=== PATIENT | female | born 1985 | race Caucasian/White ===

== ENCOUNTER → 2023-09-18 13:45 | Outpatient (REF) | payer BC, SELFPAY | LOC: WDC 13:45 | PROVIDERS: ATTENDING PHYSICIAN Nurse Practitioner Family | DX: N64.4 Mastodynia (principal) | CPT/HCPCS: 76642; 77062; 77066 ==

== ENCOUNTER 2024-01-24 14:12 | Emergency (ER) | payer BC, SELFPAY ==
[2024-01-24] VITALS (9 sets, daily range): BP systolic 95–156; BP diastolic 63–95; PULSE 66–120
[2024-01-24 14:36] LABS: % Basophils 0.7 % (0-2); % Eosinophils 1.5 % (0-6); % Immature Granulocytes 0.2 % (0-0.5); % Lymphocytes 27.7 % (20.5-51.1); % Monocytes 5.6 % (1.7-9.3); % Neutrophils 64.3 % (42.2-75.2); Absolute Eosinophils 0.1 10^3/uL (0-0.7); Absolute Lymphocytes 1.6 10^3/uL (1.2-3.4); Absolute Monocytes 0.3 10^3/uL (0.1-0.6); Absolute Neutrophils 3.8 10^3/uL (1.4-6.5); Hematocrit 42.6 % (37.0-47.0); Hemoglobin 14.3 g/dL (12.0-16.0); Mean Corp Hgb Conc. 33.6 g/dL (33.0-37.0); Mean Corpuscular Hgb 29.3 pg (27.0-31.0); Mean Corpuscular Volume 87.3 fL (81.0-99.0); Mean Platelet Volume 11.1 fL (7.4-10.4); Nucleated Red Blood Cells % 0 %; Platelet Count 246 10^3/uL (130-400); Red Blood Cell Count 4.88 10^6/uL (4.20-5.40); Red Cell Dist. Width 13.5 % (11.5-14.5); White Blood Cell Count 5.9 10^3/uL (4.8-10.8)
[2024-01-24 14:50] LABS: HCG, Serum Qualitative Screen Negative
[2024-01-24 14:53] LABS: ALT (SGPT) 18 U/L (0-35); AST (SGOT) 31 U/L (14-36); Albumin 5.3 g/dl (3.5-5.0); Alkaline Phosphatase 43 U/L (38-126); Blood Urea Nitrogen 10 mg/dl (7-17); Calcium 9.8 mg/dl (8.4-10.2); Carbon Dioxide 25 mmol/L (22-30); Chloride 104 mmol/L (98-107); Glucose 93 mg/dl (70-99); Potassium 4.2 mmol/L (3.5-5.1); Sodium 138 mmol/L (135-145); Total Bilirubin 0.7 mg/dl (0.2-1.3); Total Protein 8.7 g/dl (6.3-8.2); eGFR > 60.00
--- NOTE | 2024-01-24 15:22 | ED.GENMED ---
History of Present Illness
General
Chief Complaint: Dizziness
Source: patient
Time Seen by Provider: 01/24/24 15:06
History of Present Illness
History of Present Illness:
38-year-old female with no significant past medical history presenting to the emergency department for evaluation after she started to experience approximately 24 hours of continuous lightheadedness/dizziness, mild headache and some nausea. Patient
states that she will often time feel lightheaded or dizzy which she states ophthalmology attributed to strabismus and she was prescribed glasses however sometimes the glasses will cause her to have a headache. She states that her
lightheadedness/dizziness is often transient but over the last 24 hours it has been constant which is why she came to the ER today. She denies any visual disturbances, focal weakness or numbness, chest pain, shortness of breath, palpitations,
abdominal pain, nausea, vomiting, recent illnesses or recurrent upper respiratory like symptoms. Has not attempted any medications prior to arrival. No other concerns presently.
Past History
Past History
ED Past Medical History: None
ED Past Surgical History:
Social History
Tobacco: Non-smoker
Alcohol: Occasional
Drug: None
Personal:
Living: with family
Employment: Employed
Review of Systems
Review of Systems
All Other Systems: ROS reviewed and negative except as documented in HPI and ROS
Phy Exam
Physical Exam
Physical Exam:
GENERAL: Alert , in no apparent distress
EYE: pupils equal and reactive, 4 mm bilateral, EOMI, rightward fatigable nystagmus, strabismus noted
NECK: Supple,
ENT: o/p clr, mmm.
CARDIAC: Regular rate and rhythm, no murmur.
LUNGS: Clear breath sounds bilaterally, no acute respiratory distress, no wheezes/rales/rhonchi
ABDOMEN: Soft, without focal tenderness, no r/g, no cvat
NEUROLOGICAL: Alert and oriented, no focal neuro deficits, no ataxia, no dysmetria or dysarthria, moves all extremities
SKIN: Warm and dry, skin intact.
MUSCULOSKELETAL: well perfused.
PSYCH: Normal and appropriate interaction.
Scores
Heart Failure Risk
Heart Failure Risk Score: Not Applicable
Heart Score for Chest Pain Patients
STEMI patient?: Not applicable
Withdrawal Assessment of Alcohol
Withdrawal Assessment Completed?: Not applicable
Course
Orders/Labs/Results
Orders:
Orders
01/24/24 14:16
Electrocardiogram (*1) Urgent
Reason for Study: Chest Pain
EKG- Treatment ONCE
Test Result ONCE
01/24/24 14:26
Complete Blood Count/With Diff Urgent
Comprehensive Metabolic Panel Urgent
HCG, Serum Qualitative Screen Urgent
01/24/24 15:19
0.9% Sodium Chloride 1000 ml [Nss] 1,000 ml IV BOLUS
Meclizine [Antivert] 25 mg PO NOW STA
01/24/24 16:27
CT Head W/o Iv Contrast Urgent
Comment:
Reason For Exam: dizziness/vertigo
01/24/24 16:28
Meclizine [Antivert] 25 mg PO NOW STA
Abnormal Lab Results
01/24/24
14:26
MPV 11.1 H fL
(7.4-10.4)
Total Protein 8.7 H g/dl
(6.3-8.2)
Albumin 5.3 H g/dl
(3.5-5.0)
01/24/24 14:26
01/24/24 14:26
Vital Signs
Initial and Last Documented VS:
Initial Vital Signs
Temp Pulse Resp BP Pulse Ox
98.8 F 81 16 156/89 98
01/24/24 14:13 01/24/24 14:13 01/24/24 14:13 01/24/24 14:13 01/24/24 14:13
Last Documented Vital Signs
Temp Pulse Resp BP Pulse Ox
98.8 F 67 17 95/66 100
01/24/24 14:13 01/24/24 18:00 01/24/24 18:00 01/24/24 18:00 01/24/24 16:43
MDM/Problems Addressed
Differential Diagnosis Includes:
BPPV, labyrinthitis, orthostasis, less concern for cerebellar CVA given no risk factors for CVA
MDM/Problems Addressed:
38-year-old female presenting to the emergency department for evaluation of persistent lightheadedness/dizziness over the last 24 hours. Exam did reveal a rightward horizontal nystagmus. Chronic strabismus noted. Orthostatic vital signs were
obtained and while patient's blood pressure did not drop her heart rate shot up to 122 bpm when going from sitting to standing and it did elicit worsening symptoms. Patient is not exhibiting any signs of dehydration and noting that she has been
increasing her water intake over the last 24 hours. I suspect this is more likely an inner ear source or orthostasis as it behooves to an acute neurologic event. Will treat with normal saline solution as well as Antivert and reassess following.
*Radiology
Radiology exam reviewed: radiology read reviewed
*Pulse Oximetry
Patient hypoxic: no
*EKG
Interpreted by ED Provider?: Yes
Comparison EKG: no comparison EKG present
Heart Rate: 62
Rate: normal
Rhythm: sinus
Prentiss: normal axis
Ischemia: no ischemia
*Computer Meteorologist Interpretation
Rate: normal
Rhythm: sinus
*Critical Care Note
Total Time (30-74mins, 75-104mins- exclusive of procedures): Not Applicable
Comment
Comment:
On reevaluation patient is noting no relief with medications or fluids. I added on a CT scan to evaluate for any possible intracranial pathology. Additional 25 mg of meclizine ordered. Patient declining any Motrin or Tylenol for her mild headache.
Patient Management
Escalation/DeEscalation of care consider admission/obs:
On multiple reevaluations following second dose of meclizine patient did states she had symptomatic improvement. Head CT was unremarkable for any acute pathologies. Patient felt comfortable being discharged home. She ambulated with steady
non-ataxic gait. She will follow-up with primary care provider. Aware of return precautions to the ER.
ED Attending Note
-
Portions of this chart may have been created with voice recognition software.� Occasional wrong word or��sound alike� substitutions may have occurred due to the inherent limitations of voice recognition software.
Discharge Plan
Departure
Patient Disposition: Home (Routine Discharge)
Date of Disposition: 01/24/24
Time of Disposition: 18:33
Patient with high blood pressure during this ER visit?: Yes
Discharge Problem:
Vertigo
Instructions: Vertigo (a Type of Dizziness) (DC)
Prescriptions:
New
meclizine 25 mg tablet
25 mg PO BID PRN (Reason: dizziness) Qty: 10 0RF
No Action
PNV cmb#95-ferrous fumarate-FA [] 1 EACH tablet
1 ea PO HS
sennosides-docusate sodium 1 TABLET tablet
1 tab PO DAILYPRN PRN (Reason: constipation) Qty: 60 0RF
ferrous sulfate [FeroSul] 325 MG tablet
325 mg PO BID Qty: 60 0RF
acetaminophen 325 mg Tablet
650 mg PO Q4HPRN PRN (Reason: mild pain) Qty: 30 0RF
ibuprofen 600 mg Tablet
600 mg PO Q4HPRN PRN (Reason: moderate pain/cramps) Qty: 30 0RF
Referrals:
Carol Gresham PA-C [Family Provider] -
Interventions
Interventions:
*Risk Screen - Suicide Last Done: 01/24/24 14:13
*General Assessment Last Done: 01/24/24 14:13
*Neglect/Abuse Screening Last Done: 01/24/24 14:13
ED- Neurological Assessment Last Done: 01/24/24 15:14
ED- Cardiac Assessment Last Done: 01/24/24 15:14
ED Swallowing Screen Last Done: 01/24/24 15:00
Discharge Date and Time
Print Language: PERUVIAN
[2024-01-24] MEDS: NSS 1000 IV (15:30)
[2024-01-24] MEDS: ANTIVERT 25 MG PO ×2 (15:34→16:42)
== END 2024-01-24 18:50 | disposition home or self-care (01) ==
LOC: EMR 14:12
PROVIDERS: EMERGENCY PHYSICIAN Student in an Organized Health Care Education/Training Program; FAMILY PHYSICIAN Physician Assistant Medical
DX: R42 Dizziness and giddiness (principal)
CPT/HCPCS: 99284; 96360; 70450; 80053; 84703; 85025; 93005